=== PATIENT | male | born 1950 | race Caucasian/White ===

== ENCOUNTER 2018-08-23 21:28 | Emergency (ER) | payer OTHER ==
--- NOTE | 2018-08-23 21:35 | EDPHY ---
H & P Time Seen by Provider: 08/23/18 21:34 Constitutional: Initial Vital Signs Temperature (C) 36.6 C 08/23/18 21:35 Heart Rate 81 08/23/18 21:35 Respiratory Rate 18 08/23/18 21:35 Blood Pressure 149/98 H 08/23/18 21:35 O2 Sat (%) 93 08/23/18 21:35 O2 Delivery Mode Room Air Allergies/Adverse Reactions: No Known Allergies Allergy (Unverified 08/23/18 21:46) Home Medications: Medication Instructions Recorded Levothyroxine 08/23/18 Lisinopril 08/23/18 Medical Decision Making ED Course/Re-evaluation: CHIEF COMPLAINT: Swollen feet HISTORY OF PRESENT ILLNESS: The patient is a 68 y/o male with a history of neuropathy and left 5th toe amputation arriving in [facility] from care home complaining of swollen feet. He states his feet have been "purple for quite some time". [facility] who amputated his left 5th toe. He states he can feel pressure but is unable to feel pain. No fever, headache, chest pain, shortness of breath, abdominal pain, urinary or bowel complaints, numbness, paresthesias. REVIEW OF SYSTEMS: A comprehensive 10 system review of systems is otherwise negative aside from elements mentioned in the history of present illness and medical decision making. PHYSICAL EXAM: HR, BP, O2 Sat, RR. Temp noted General Appearance: Alert, well hydrated, appropriate, and non-toxic appearing. Head: Atraumatic without scalp tenderness or obvious injury Eyes: Pupils equal, round, reactive to light and accommodation, EOMI, no trauma , no injection. Ears: Clear bilaterally, no perforation, normal landmarks Nose: Atraumatic, no rhinorrhea, clear. Throat: There is no erythema or exudates, no lesions, normal tonsils, mucus membranes moist. Neck: Supple, 2+ carotid upstroke, nontender, no lymphadenopathy. Respiratory: No retractions, no distress, no wheezes, and no accessory muscle use. Lungs are clear to auscultation bilaterally. Cardiovascular: Regular rate and rhythm, no murmurs, rubs, or gallops. Bilateral carotid, radial, dorsalis pedis, and posterior tibial pulses intact. Good capillary refill all extremities. Gastrointestinal: Abdomen is soft, nontender, non-distended, no masses, no rebound, no guarding, no peritoneal signs. Musculoskeletal: Bilateral posterior tibial and dorsalis pedis pulses present. Purple colored feet. Normal active ROM of all extremities, atraumatic. Neurological: Alert, appropriate, and interactive. The patient has normal DTRs and non-focal cranial nerves, motor, sensory, and cerebellar exam. Skin: No rashes, good turgor, no nodules on palpation. Past medical history: Neuropathy Past surgical history: Amputated left 5th toe. 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, single, retired DIAGNOSTICS/PROCEDURES/CRITICAL CARE TIME: Not indicated. DIFFERENTIAL DIAGNOSIS: The differential diagnosis for the patient's leg swelling included but was not limited to hypoalbuminemia, congestive heart failure, cor pulmonale, venous stasis, trauma, and DVT. MEDICAL DECISION MAKING: The patient is a 68 y/o male with a history of neuropathy and a left 5th toe amputation arriving in [facility] from care home complaining of swollen and purple colored feet. On exam he has bilateral posterior tibial and dorsalis pedis pulses present via Doppler. His feet are purple colored which is most likely due to his chronic peripheral neuropathy. There are no acute findings today and this patient will need to follow up with a vascular specialist when he transfers to [facility]. I discussed follow up with the patient and the officers that have accompanied him; they are comfortable with this plan. [id number]: I spoke with the care home nurse regarding this patient. She is aware that the patient will need follow up with a vascular specialist. Departure - Departure Disposition: Home, Routine, Self-Care Clinical Impression: Peripheral neuropathy Qualifiers: Peripheral neuropathy type: polyneuropathy, other Qualified Code(s): G62.89 - Other specified polyneuropathies Condition: Good Instructions: Peripheral Neuropathy (ED) Additional Instructions: 1. You need to follow up with a vascular specialist in the next week. 2. Return to the emergency department for worsening pain, swelling, numbness, weakness or other concerns. Referrals: [facility],. [Clinic] - As per Instructions Report Scribed for: Gilbert Christianson Report Scribed by: Nancy Alexander Date of Report: 08/23/18 Time of Report: 21:36
[2018-08-23 22:33] VITALS: BP 153/100
== END 2018-08-23 22:33 | disposition home or self-care (01) ==
LOC: EDBD 21:28
DX: G62.89 Other specified polyneuropathies (principal); Z89.422 Acquired absence of other left toe(s)